=== PATIENT | female | born 1960 | race Caucasian/White ===

== ENCOUNTER 2017-08-15 11:36 | Day surgery (SDC) | payer OTHER ==
[~2017-08-15] VITALS: Ht 152.4 cm; Wt 49.0 kg
[2017-08-15 12:11] VITALS: Ht 152.4 cm; Wt 49.0 kg
[2017-08-15] MEDS ORDERED: ATOR20TA38 PO (12:18)
[2017-08-15] MEDS ORDERED: LOSA50TA6 PO (12:18)
[2017-08-15] MEDS ORDERED: LACT10SO5 PO (12:18)
[2017-08-15] MEDS ORDERED: ASPI81TA3 PO (12:18)
[2017-08-15 12:53] VITALS: BP 142/76; PULSE 66; RESP 11
[2017-08-15] MEDS ORDERED: FENTAnyl 50 MCG/ML VIAL ONE (13:47)
[2017-08-15] MEDS ORDERED: MIDAZOLAM 1 MG/ML 2 ML INJ ONE ×2 (13:47)
--- NOTE | 2017-08-15 14:02 | OPPN ---
Date/Time of Note Date/Time of Note DATE: 08/15/17 TIME: 13:56 No active diverticulitis is present only diverticulosis seen in the colonoscopy Occult blood continues to be positive consider upper endoscopy and if necessary capsule enteroscopy Follow-up in my office in 2-3 weeks Operative Report Preoperative Diagnosis Occult blood positive Diverticulitis treated with antibiotic Postoperative Diagnosis Reticulosis in the left colon but no active diverticulitis at present Otherwise normal colon Operation/Procedure Performed Colonoscopy Surgeon see signature line library media assistant None Anesthesia: moderate sedation (Versed 3 mg/fentanyl 75MCG) Estimated blood loss: none Transfusion Required none Specimen None Grafts/Implants none Complications none GERHARD SOSA MD Aug 15, 2017 14:02
--- NOTE | 2017-08-15 14:58 | GILP ---
DATE OF PROCEDURE: 08/15/2017 PREOPERATIVE DIAGNOSIS: Occult bleeding with positive occult blood and also had diverticulitis, most recently treated. This patient was referred to Dr. Mendez and he referred her back to me because of insurance reasons. She took Cipro and Flagyl. Prior to this procedure she had diverticulitis, improved now with colonoscopy as planned. PROCEDURE: Colonoscopy up to cecum. POSTOPERATIVE DIAGNOSIS: 1. Diverticulosis. 2. No active diverticulitis. DESCRIPTION OF PROCEDURE: The patient was sedated and monitored. She received 3 mg IV Versed and 75 mcg of fentanyl and the rectal exam was done, which was normal. I advanced a pediatric colonoscope, Olympus video colonoscope, all the way to cecum, very carefully. In the left colon there was diverticulosis. Transverse colon normal. Ascending colon, hepatic flexure and the cecum normal ileocecal valve. Appendiceal opening identified. Cecum, ascending colon normal. Transverse colon normal. Descending colon, sigmoid colon, scattered diverticula, but no diverticulitis. Examination of the rectum including retroflexion is normal. RECOMMENDATIONS: To avoid seeds and nuts and advised her to follow up in the office. If occult blood continues to be positive, Upper endoscopy and capsule enteroscopy as outpatient. Dictated By: Familia Brown MD /daisy/kiko /Document#: [id number] ; Dr. Star San
== END 2017-08-15 15:56 | disposition home or self-care (01) ==
LOC: GIL 11:36
PROVIDERS: ATTEND Internal Medicine
DX: K92.1 Melena (principal); K57.90 Diverticulosis of intestine, part unspecified, without perforation or abscess without bleeding
CPT/HCPCS: 45378; J2250; J3010; Z7610